=== PATIENT | female | born 1965 | race Caucasian/White ===

== ENCOUNTER 2017-02-09 06:03 | Day surgery (SDC) | payer OTHER, MEDICAID ==
[2017-02-08 12:39] LABS: BASOPHILS # (AUTO) 0.1 K/uL (0.00-0.22); EOSINOPHILS # (AUTO) 0.1 K/uL (0-0.4); EOSINOPHILS % (AUTO) 0.8 % (0.0-4.0); HEMATOCRIT 41.6 % (36-48); HEMOGLOBIN 13.8 g/dL (12.0-16.0); LYMPHOCYTES # (AUTO) 2.2 K/uL (2.5-16.5); MEAN CORPUSCULAR HEMOGLOBIN 30 pg (27-31); MEAN CORPUSCULAR HGB CONC 33 g/dL (33-37); MEAN CORPUSCULAR VOLUME 90 fL (80-94); MONOCYTES # (AUTO) 0.6 K/uL (0.8-1.0); MONOCYTES % (AUTO) 6.4 % (1.7-9.3); NEUTROPHILS % (AUTO) 69.8 % (42.2-75.2); PLATELET COUNT (AUTO) 266 K/uL (140-450); RED BLOOD CELL COUNT(AUTO) 4.62 MIL/uL (4.20-5.40); RED CELL DISTRIBUTION WIDTH 13.6 % (11.6-13.7)
[2017-02-08 13:00] LABS: ANION GAP 12.3 (8-16); CALCIUM 8.5 mg/dL (8.5-10.1); CARBON DIOXIDE 26.4 mmol/L (21-32); CREATININE 0.7 mg/dL (0.6-1.3); POTASSIUM 3.7 mmol/L (3.5-5.1)
[2017-02-08 13:06] LABS: ALBUMIN 3.7 g/dL (3.4-5.0); TOTAL BILIRUBIN 0.3 mg/dL (0.0-1.0); TOTAL PROTEIN, SERUM 7.2 g/dL (6.4-8.2)
[~2017-02-09] VITALS: Ht 152.4 cm; Wt 80.7 kg
[2017-02-09] MEDS ORDERED: ceFAZolin 1,000 MG VIAL ONE (07:09)
[2017-02-09] MEDS ORDERED: BUPIVACAINE-MPF/EPI 0.25% 30 ML VIAL INJ ONE (07:10)
[2017-02-09] MEDS ORDERED: LIDOCAINE 1% 50 ML ONE (07:20)
[2017-02-09] MEDS ORDERED: PROPOFOL 200 MG/20 ML VIAL IV ONE (07:36)
[2017-02-09] MEDS ORDERED: DEXAMETHASONE 4 MG/ML VIAL IVP ONE (07:36)
[2017-02-09] MEDS ORDERED: SEVOFLURANE 250 ML BTL INH ONE (07:36)
[2017-02-09] MEDS ORDERED: ONDANSETRON 4 MG/2 ML VIAL IVP ONE (07:36)
[2017-02-09] MEDS ORDERED: CLINDAMYCIN 600 MG in DEXTROSE 5% 50 ML IV SCH ×2 (07:44→12:00)
[2017-02-09] MEDS ORDERED: fentaNYL 0.05 MG/ML VIAL ONE (08:14)
[2017-02-09] MEDS ORDERED: KETOROLAC 30 MG/ML VIAL IVP PRN (08:15)
[2017-02-09] MEDS ORDERED: HYDROmorphone 1 MG/ML AMP IVP PRN (08:40)
[2017-02-09] MEDS ORDERED: MORPHINE SULFATE 2 MG/ML SYR IVP PRN (08:40)
[2017-02-09] MEDS ORDERED: ONDANSETRON 4 MG/2 ML VIAL IV PRN (08:40)
[2017-02-09] MEDS ORDERED: MORPHINE SULFATE 4 MG/ML SYR IV PRN (08:40)
[2017-02-09] MEDS ORDERED: HYDROcodone/APAP 5/325 MG 1 TAB TAB PO PRN (08:40)
[2017-02-09] MEDS ORDERED: KETOROLAC 30 MG/ML VIAL ONE (08:48)
== END 2017-02-09 10:30 | disposition home or self-care (01) ==
LOC: MDS 06:03 → MMU 06:04 → MDS 10:30
PROVIDERS: ATTEND Surgery
DX: C50.911 Malignant neoplasm of unspecified site of right female breast (principal); M06.9 Rheumatoid arthritis, unspecified; D50.9 Iron deficiency anemia, unspecified; M79.7 Fibromyalgia
CPT/HCPCS: 36561; 71010; 76000; 76937; 80053; 85025; 86886; 86900; 86901; 93005; C1751; J0690; J1100; J1644; J1885; J2001; J2270; J2405; J2704; J3010; J3490; J7030; J7060; J7120; Q0092